=== PATIENT | male | born 1995 | race African-American/Black ===

== ENCOUNTER 2018-04-13 01:44 | Emergency (ER) | payer BC, SELFPAY | END 2018-04-13 02:24 | disposition home or self-care (01) | LOC: ERS 01:44 | DX: S46.911A Strain of unspecified muscle, fascia and tendon at shoulder and upper arm level, right arm, initial encounter (principal); X58.XXXA Exposure to other specified factors, initial encounter | CPT/HCPCS: 99283 ==

== ENCOUNTER 2021-08-01 01:44 | Emergency (ER) | payer SELFPAY ==
[2021-08-01] MEDS ORDERED: Acetaminophen 500 MG TAB ONE (02:42)
[2021-08-01] MEDS ORDERED: Metoclopramide HCl 10 MG TAB ONE (02:42)
[2021-08-01] MEDS ORDERED: Ketorolac Tromethamine 30 MG/ML VIAL ONE (02:42)
[2021-08-01 03:07] LABS: Bilirubin Negative (Negative); Blood, Urine Negative (Negative); Clarity Clear (Clear); Glucose, Urine (Dipstick) Normal (Negative); Ketone, Urine Negative (Negative); Leukocyte Negative Leu/uL (Negative); Nitrite Negative (Negative); Protein, Urine (Dipstick) 20 mg/dL (Neg-Trace); Urobilinogen Normal mg/dL (Less than 2)
[2021-08-01 12:31] LABS: SARS-CoV-2 PCR by NAA DETECTED (NotDetected)
== END 2021-08-01 03:30 | disposition home or self-care (01) ==
LOC: ERS 01:44
DX: U07.1 COVID-19 (principal)
CPT/HCPCS: 81003; 87086; 96372; 99283; J1885; U0003; U0005

== ENCOUNTER 2021-08-10 02:22 | Emergency (ER) | payer SELFPAY | END 2021-08-10 02:25 | disposition left against medical advice (07) | LOC: ERS 02:22 | DX: Z53.21 Procedure and treatment not carried out due to patient leaving prior to being seen by health care provider (principal) ==

== ENCOUNTER 2021-08-10 10:51 | Emergency (ER) | payer SELFPAY | END 2021-08-10 12:14 | disposition home or self-care (01) | LOC: ERS 10:51 | DX: U07.1 COVID-19 (principal) | CPT/HCPCS: 99283 ==

== ENCOUNTER 2022-02-27 04:27 | Emergency (ER) | payer SELFPAY ==
[2022-02-27] MEDS ORDERED: Iopamidol 370 76% 100 ML VIAL ONE (09:07)
== END 2022-02-27 05:50 | disposition home or self-care (01) ==
LOC: ERS 04:27
DX: R53.1 Weakness (principal); R29.810 Facial weakness; F17.210 Nicotine dependence, cigarettes, uncomplicated
CPT/HCPCS: 36416; 70450; 70496; 70498; 93005; Q9967